=== PATIENT | male | born 2000 | race Caucasian/White ===

== ENCOUNTER 2022-03-05 10:16 | Observation (INO) ==
[2022-03-05] MEDS ORDERED: NS 0.9% 1000 ml BAG 1,000 ML IV ONE ×2 (12:29→16:11)
[2022-03-05] MEDS ORDERED: Ondansetron 4 mg VIAL 2 MG/ML 2 ml VIAL IV ONE (12:31)
[2022-03-05 13:26] LABS: Hematocrit 48 % (42-52); Hemoglobin 15.6 g/dL (14.0-18.0); Mean Corpuscular HGB Conc 33 g/dL (31-36); Mean Corpuscular Hemoglobin 30 pg (27-31); Mean Corpuscular Volume 92 fL (80-94); Mean Platelet Volume 8.3 fL (7.4-10.4); Platelet Count 426 10^3/uL (150-450); Red Blood Count 5.22 10^6 /uL (4.18-5.48); Red Cell Distribution Width 15 % (10-15); White Blood Count 28.3 10^3/uL (3.5-10.8)
[2022-03-05 14:05] LABS: ALT 9 U/L (7-52); Albumin 4.1 g/dL (3.2-5.2); Albumin/Globulin Ratio 1.2 (1-3); Alkaline Phosphatase 79 U/L (35-149); Blood Urea Nitrogen 9 mg/dL (6-24); CO2 Carbon Dioxide 28 mmol/L (22-32); Calcium 9.9 mg/dL (8.6-10.3); Chloride 98 mmol/L (101-111); Globulin 3.4 g/dL (2-4); Glucose 80 mg/dL (70-100); Lipase < 10 U/L (11.0-82.0); Sodium 134 mmol/L (135-145); Total Protein 7.5 g/dL (6.4-8.9); eGFR CKD-EPI 131.4 (>60)
[2022-03-05 14:15] LABS: Anion Gap 8 mmol/L (2-11)
[2022-03-05] MEDS ORDERED: Iohexol 350 (CONTRAST) 500 ML MDV IV ONE (14:16)
[2022-03-05 14:26] LABS: ABS Eosinophils 1.4 10^3/ul (0-0.6); ABS Lymphocytes 2.9 10^3/ul (1.0-4.8); ABS Monocytes 3.1 10^3/ul (0-0.8); ABS Neutrophils 20.9 10^3/ul (1.5-7.7); Eosinophil % 4.8 %; Lymphocyte % 10.1 %; RBC Morphology Normal (Normal)
[2022-03-05 16:43] LABS: Urine Appearance Clear; Urine Bilirubin Negative (Negative); Urine Color Yellow; Urine Glucose Negative (Negative); Urine Ketones 4+ (>=160mg/dL) (Negative)
[2022-03-05 16:44] LABS: Urine Blood Negative (Negative); Urine Nitrite Negative (Negative); Urine Protein Negative (Negative); Urine Urobilinogen 0.2 (Negative) (Negative); Urine pH 5.5 (5.0-9.0)
[2022-03-05 17:40] LABS: Magnesium 1.9 mg/dL (1.9-2.7)
[2022-03-05 17:43] LABS: Potassium Redraw 4.8 mmol/L (3.5-5.0)
[2022-03-05] MEDS ORDERED: NS 0.9% 1000 ml BAG 1,000 ML IV SCH (18:45)
[2022-03-05] MEDS: NS 0.9% 1000 ml BAG 1,000 ML IV SCH (20:42)
[2022-03-06] MEDS: NS 0.9% 1000 ml BAG 1,000 ML IV SCH (04:56)
[2022-03-06 05:42] LABS: ABS Basophils 0.1 10^3/ul (0-0.2); ABS Eosinophils 1.9 10^3/ul (0-0.6); ABS Lymphocytes 3.1 10^3/ul (1.0-4.8); ABS Monocytes 2.4 10^3/ul (0-0.8); ABS Neutrophils 16.2 10^3/ul (1.5-7.7); Hematocrit 42 % (42-52); Hemoglobin 13.8 g/dL (14.0-18.0); Lymphocyte % 13.3 %; Mean Corpuscular HGB Conc 33 g/dL (31-36); Mean Corpuscular Hemoglobin 30 pg (27-31); Mean Corpuscular Volume 90 fL (80-94); Mean Platelet Volume 7.7 fL (7.4-10.4); Platelet Count 377 10^3/uL (150-450); Red Blood Count 4.61 10^6 /uL (4.18-5.48); Red Cell Distribution Width 14 % (10-15); White Blood Count 23.6 10^3/uL (3.5-10.8)
[2022-03-06 06:48] LABS: Albumin 3.3 g/dL (3.2-5.2); Albumin/Globulin Ratio 1.3 (1-3); Calcium 8.9 mg/dL (8.6-10.3); Globulin 2.6 g/dL (2-4); Potassium 4.4 mmol/L (3.5-5.0); Total Bilirubin 0.5 mg/dL (0.2-1.0); Total Protein 5.9 g/dL (6.4-8.9); eGFR CKD-EPI 141.7 (>60)
[2022-03-06] MEDS: Enoxaparin 40 MG/0.4 ML SYR SUBCUT SCH (10:47)
[2022-03-06] MEDS ORDERED: Midazolam 10 mg/10 ml VIAL 1 mg/ml 10 ml VIAL (10 mg) ONE (14:20)
[2022-03-06] MEDS ORDERED: fentaNYL 100 mcg/2 ml 50 MCG/ML VIAL ONE (14:20)
[2022-03-07] MEDS: NS 0.9% 1000 ml BAG 1,000 ML IV SCH (02:52)
[2022-03-07 05:31] LABS: Hematocrit 40 % (42-52); Hemoglobin 13.3 g/dL (14.0-18.0); Mean Corpuscular HGB Conc 33 g/dL (31-36); Mean Corpuscular Hemoglobin 30 pg (27-31); Mean Corpuscular Volume 91 fL (80-94); Mean Platelet Volume 8.5 fL (7.4-10.4); Platelet Count 367 10^3/uL (150-450); Red Blood Count 4.39 10^6 /uL (4.18-5.48); Red Cell Distribution Width 14 % (10-15); White Blood Count 19.2 10^3/uL (3.5-10.8)
[2022-03-07 05:53] LABS: Calcium 8.7 mg/dL (8.6-10.3); Magnesium 1.8 mg/dL (1.9-2.7); Potassium 4.2 mmol/L (3.5-5.0); eGFR CKD-EPI 141.7 (>60)
[2022-03-07 08:03] LABS: C Reactive Protein 90.94 mg/L (<8.01)
[2022-03-07] MEDS: Enoxaparin 40 MG/0.4 ML SYR SUBCUT SCH (08:04)
[2022-03-07 09:46] LABS: ABS Basophils 0.1 10^3/ul (0-0.2); ABS Eosinophils 3.9 10^3/ul (0-0.6); ABS Lymphocytes 4.4 10^3/ul (1.0-4.8); ABS Monocytes 2.2 10^3/ul (0-0.8); ABS Neutrophils 8.6 10^3/ul (1.5-7.7); Eosinophil % 20.3 %; Lymphocyte % 23.1 %
[2022-03-07 11:28] VITALS: BP 142/84
[2022-03-08 22:22] LABS: Calprotectin >3000 mcg/g
== END 2022-03-07 15:12 | disposition home or self-care (01) ==
LOC: EDHOLD 10:16 → ED 10:16 → MED 03-06 16:33
PROVIDERS: ADMIT Hospitalist; ATTEND Hospitalist